=== PATIENT | female | born 1965 | race Caucasian/White ===

== ENCOUNTER 2017-04-22 06:41 | Day surgery (SDC) | payer BC ==
[2017-04-22] MEDS ORDERED: Sodium Chloride 0.9% 1,000 ML IV SCH (07:30)
[2017-04-22] MEDS ORDERED: Midazolam 1 MG/ML 2 ML SDV ONE (07:37)
[2017-04-22] MEDS ORDERED: Propofol 200 MG/20 ML SDV ONE (07:37)
[2017-04-22] MEDS ORDERED: fentaNYL 100 MCG/2 ML SDV ONE (07:37)
--- NOTE | 2017-04-22 11:56 | OR ---
DATE OF PROCEDURE: 04/22/2017 PROCEDURE: Colonoscopy. FINDINGS: Very small transverse colon polyp, approximately 5 mm, completely removed using cold biopsy forceps. COMPLICATIONS: None. AWNING FRAME MAKER: None. PREOPERATIVE DIAGNOSIS: Screening colonoscopy. POSTOPERATIVE DIAGNOSIS: Screening colonoscopy. RISKS: Risks, benefits, alternatives, limitations including, but not limited to infection, bleeding, and perforation were explained to the patient and wished to proceed. PROCEDURE IN DETAIL: The patient was placed in left lateral decubitus position. Digital rectal exam was performed without abnormality. The scope was introduced and advanced atraumatically to the ileocecal valve. The scope was brought back to the ascending, transverse, descending colon, and retroflexed. No evidence of old or new blood. No masses. There was a small polyp, as previously mentioned, which was completely removed. No abnormalities on retroflexion. The patient tolerated the procedure well. Feng Pearson MD /[id number]
== END 2017-04-22 11:00 | disposition home or self-care (01) ==
LOC: JP.SDS 06:41
PROVIDERS: ATTEND Surgery
DX: Z12.11 Encounter for screening for malignant neoplasm of colon (principal); K63.5 Polyp of colon
CPT/HCPCS: 45380; J2250; J2704; J3010; J7040; 88305

== ENCOUNTER 2019-07-23 08:11 | Day surgery (SDC) | payer OTHER ==
[2019-07-23] MEDS ORDERED: Midazolam 1 MG/ML 2 ML SDV ONE (09:00)
[2019-07-23] MEDS ORDERED: Propofol 200 MG/20 ML SDV ONE (09:00)
[2019-07-23] MEDS ORDERED: fentaNYL 100 MCG/2 ML SDV ONE (09:00)
[2019-07-23] MEDS ORDERED: Sodium Chloride 0.9% 1,000 ML IV SCH (09:15)
--- NOTE | 2019-07-24 09:03 | OR ---
DATE OF PROCEDURE: 07/23/2019 SURGEON: Feng Pearson MD PROCEDURE: Colonoscopy. FINDINGS: Rectal polyp, approximately 5 mm, completely removed using hot snare wire device. PREOPERATIVE DIAGNOSES: Screening colonoscopy/family history of colorectal cancer. POSTOPERATIVE DIAGNOSES: Screening colonoscopy/family history of colorectal cancer. RISKS: Risks, benefits, alternatives, and limitations including, but not limited to infection, bleeding, and perforation were explained to the patient, who wished to proceed. PROCEDURE IN DETAIL: The patient was placed in left lateral decubitus position. Digital rectal exam was performed without abnormality. Scope was introduced and advanced atraumatically to the ileocecal valve. The scope was brought back through the ascending, transverse, descending colon, and retroflexed. No evidence of old or new blood. No masses. The aforementioned polyp was identified and completely removed. No abnormalities on retroflexion. The patient tolerated the procedure well. Feng Pearson MD /[id number]
== END 2019-07-23 11:10 | disposition home or self-care (01) ==
LOC: JP.SDS 08:11
PROVIDERS: ATTEND Surgery
DX: Z12.11 Encounter for screening for malignant neoplasm of colon (principal); Z80.0 Family history of malignant neoplasm of digestive organs
CPT/HCPCS: 45385; J2250; J2704; J3010; J7030

== ENCOUNTER 2019-09-23 23:14 | Emergency (ER) | payer OTHER ==
[2019-09-23] MEDS ORDERED: HYDROmorphone 1 MG/ML Syringe IM ONE (23:36)
--- NOTE | 2019-09-23 23:41 | EDM.PDOC ---
ED HPI GENERAL MEDICAL PROBLEM - General Chief Complaint: Neck Problem Stated Complaint: NECK PAIN Time Seen by Provider: 09/23/19 23:30 Source of Information: Reports: Patient, Old Records History Limitations: Reports: No Limitations - History of Present Illness INITIAL COMMENTS - FREE TEXT/NARRATIVE: 54 yo female presents with several days of progressive L posterior neck pain with radiation down her L arm. Has a remote hx of neck injury. Has been taking ibuprofen and acetaminophen with minimal relief. Does have a primary care provider, but has not seen her for this yet. Onset: Gradual Onset Date: 09/19/19 Duration: Day(s):, Getting Worse Location: Reports: Neck Quality: Reports: Ache Severity: Severe Improves with: Reports: None Worsens with: Reports: Other (time, movement of neck) Context: Reports: Other (See HPI) Associated Symptoms: Reports: No Other Symptoms Treatments INOCULATOR: Reports: Acetaminophen, NSAIDS Neck Pain Score (Numeric/FACES): 10 - Related Data Allergies Allergy/AdvReac Type Severity Reaction Status Date / Time No Known Allergies Allergy Verified 09/23/19 23:23 Home Meds: Home Meds NK [No Known Home Meds] 04/20/17 [History] Past Medical History - Past Health History Medical/Surgical History: Denies Medical/Surgical History Gastrointestinal History: Reports: Colon Polyp, Other (See Below) Other Gastrointestinal History: left side abdominal pain Genitourinary History: Reports: Renal Calculus SALES INTERN History: Reports: Musculoskeletal History: Reports: SLE Other Musculoskeletal History: numbness left side years ago. negative Neurological History: Reports: Other (See Below) Other Neuro History: occ. headache - Infectious Disease History Infectious Disease History: Reports: Chicken Pox, Mumps - Past Surgical History GI Surgical History: Reports: Colonoscopy Female Surgical History: Reports: Kidney stone extraction Neurological Surgical History: Reports: None Musculoskeletal Surgical History: Reports: None Social & Family History - Family History Family Medical History: Noncontributory - Tobacco Use Smoking Status *Q: Never Smoker - Caffeine Use Caffeine Use: Reports: Soda - Recreational Drug Use Recreational Drug Use: No ED ROS GENERAL - Review of Systems Review Of Systems: See Below Constitutional: Reports: No Symptoms HEENT: Reports: No Symptoms Respiratory: Reports: No Symptoms Cardiovascular: Reports: No Symptoms GI/Abdominal: Reports: No Symptoms : Reports: No Symptoms Musculoskeletal: Reports: Neck Pain (L side posteriorly and L upper back as well as L biceps) Skin: Reports: No Symptoms Neurological: Reports: Other (radiation of pain from neck to L arm) ED EXAM, UPPER BACK/NECK PAIN - Physical Exam Exam: See Below Exam Limited By: No Limitations General Appearance: Alert, WD/WN, Mild Distress Eye Exam: Bilateral Eye: Normal Inspection Ears Exam: Normal External Exam, Normal Canal, Hearing Grossly Normal Nose Exam: Normal Inspection, No Blood Throat/Mouth Exam: Normal Lips, Normal Voice, No Airway Compromise Head Exam: Atraumatic, Normocephalic Neck Exam: Limited Range of Motion, Other (L trapezius muscle pain) Nexus Criteria: No: Posterior, Midline Cervical Tenderness, Evidence of Intoxication, Focal Neurological Deficit, Painful Distraction Injuries Cardiovascular/Respiratory: Regular Rate, Rhythm Back Exam: Normal Inspection Extremities: Normal Inspection, Normal Range of Motion, Non-Tender, No Pedal Edema Neurologic: recreational resort manager II-XII nml As Tested, Alert, Normal Mood/Affect, Oriented x 3 Psychiatric: Normal Affect, Normal Mood Course - Vital Signs Last Recorded V/S: Last Vital Signs Temp 36.4 C 09/23/19 23:24 Pulse 86 09/23/19 23:24 Resp 20 09/23/19 23:24 BP 138/82 09/23/19 23:24 Pulse Ox 100 09/23/19 23:24 - Orders/Labs/Meds Orders: Active Orders 24 hr Category Date Time Status HYDROmorphone [Dilaudid] Med 09/23/19 23:36 Once 1 mg IM ONETIME ONE Departure - Departure Time of Disposition: 23:55 Disposition: Home, Self-Care 01 Condition: Fair Clinical Impression: Neck pain, Cervical nerve root impingement - Discharge Information *PRESCRIPTION DRUG MONITORING PROGRAM REVIEWED*: No *COPY OF PRESCRIPTION DRUG MONITORING REPORT IN PATIENT CARMELITA: No Instructions: Radicular Pain Referrals: Mojgan Albert, LYUDMILA [Primary Care Provider] - Additional Instructions: Continue ibuprofen 400-600 mg every 6 hrs with food as needed for pain relief. Take gabapentin 300 mg every 8 hrs for added relief as needed. Add [place] for added pain relief as needed. See your doctor for recheck bean. No driving when taking these meds. Sepsis Event Note - Evaluation Sepsis Screening Result: No Definite Risk - Focused Exam Vital Signs: Vital Signs Temp Pulse Resp BP Pulse Ox 09/23/19 23:24 36.4 C 86 20 138/82 100 Date Exam was Performed: 09/23/19 Time Exam was Performed: 23:36 - My Orders Last 24 Hours: My Active Orders 09/23/19 23:36 HYDROmorphone [Dilaudid] 1 mg IM ONETIME ONE - Assessment/Plan Last 24 Hours: My Active Orders 09/23/19 23:36 HYDROmorphone [Dilaudid] 1 mg IM ONETIME ONE
[2019-09-23] MEDS ORDERED: Gabapentin 300 MG Cap PO ONE (23:45)
== END 2019-09-24 00:04 | disposition home or self-care (01) ==
LOC: JP.ED 23:14
DX: G54.2 Cervical root disorders, not elsewhere classified (principal); M32.9 Systemic lupus erythematosus, unspecified
CPT/HCPCS: 96372; 99283; A9270; J1170

== ENCOUNTER 2024-03-13 09:25 | Day surgery (SDC) | payer OTHER ==
[2024-03-13] MEDS ORDERED: Midazolam 1 MG/ML 2 ML SDV ONE (09:56)
[2024-03-13] MEDS ORDERED: Propofol 200 MG/20 ML SDV ONE (09:56)
[2024-03-13] MEDS ORDERED: fentaNYL 50 MCG/ML SDV ONE (09:56)
[2024-03-13] MEDS: Lactated Ringers 1,000 ML IV SCH (10:34)
== END 2024-03-13 12:56 | disposition home or self-care (01) ==
LOC: JP.SDS 09:25
PROVIDERS: ATTEND Surgery
DX: R13.10 Dysphagia, unspecified (principal); K22.89 Other specified disease of esophagus; K21.9 Gastro-esophageal reflux disease without esophagitis
CPT/HCPCS: 00731-QZ; 88305; J2250; J2704; J3010; J7120